=== PATIENT | male | born 1995 | race American Indian/Alaskan Native ===

== ENCOUNTER 2020-02-28 21:29 | Emergency (ER) | payer SELFPAY ==
[2020-02-28 22:14] VITALS: BP 136/82
--- NOTE | 2020-02-28 22:50 | XRay Report ---
CLINICAL DATA: MAIN TECHNICAL DATA: AP and lateral views lumbar spine. FINDINGS: The bone mineralization is normal. Vertebral body heights are normal. Intervertebral disc spaces are well maintained. Pedicles and spinous processes are normal in alignment. SI joints and sacrum are nor mal. IMPRESSION: Normal examination lumbar spine. Signer Name: Ignacio Gottlieb MD Signed: 02/28/2020 10:45 PM Workstation Name: [id number]
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
[2020-02-29] MEDS ORDERED: ACETAMINOPHEN 500 MG TAB PO ONE (01:25)
[2020-02-29] MEDS ORDERED: IBUPROFEN 600 MG TAB PO ONE (01:25)
== END 2020-02-29 01:35 | disposition home or self-care (01) ==
LOC: ED 21:29
DX: M62.830 Muscle spasm of back (principal); F12.10 Cannabis abuse, uncomplicated; V89.2XXA Person injured in unspecified motor-vehicle accident, traffic, initial encounter; Y93.89 Activity, other specified; Y92.89 Other specified places as the place of occurrence of the external cause; Y99.8 Other external cause status
CPT/HCPCS: 72100; 99283